=== PATIENT | female | born 1985 | race Caucasian/White ===

== ENCOUNTER 2017-12-25 21:24 | Emergency (ER) | payer BC ==
[2017-12-25] MEDS ORDERED: Sodium Chloride 0.9% 1,000 ML IV ONE (21:30)
--- NOTE | 2017-12-25 21:38 | EDM.PDOC ---
<Janes Martinez - Last Filed: 12/25/17 23:01> ED HPI GENERAL MEDICAL PROBLEM - General Stated Complaint: 15 WEEKS PREG- TROUBLE BREATHING Time Seen by Provider: 12/25/17 21:30 - History of Present Illness INITIAL COMMENTS - FREE TEXT/NARRATIVE: Dr. Martinez taking over care for patient at 2200 hrs. I reviewed pertinent labs and history and have examined patient. Patient improved with IV fluids. Secondary to limited symptoms I do not feel that treating with an antibiotic at this time is necessary. I did instruct her to follow-up with her PULMONARY FELLOW Dr. vegas at [facility] on Wednesday. I also instructed her to return to emergency department if she had any new or worsening symptoms. Hers well's criteria is low probability for DVT/PE. - Related Data Allergies Allergy/AdvReac Type Severity Reaction Status Date / Time No Known Allergies Allergy Verified 12/25/17 21:32 Home Meds: Home Meds . [No Known Home Meds] 12/25/17 [History] ED ROS GENERAL - Review of Systems Review Of Systems: ROS reveals no pertinent complaints other than HPI. ED EXAM, GENERAL - Physical Exam Exam: See Below Course - Vital Signs Last Recorded V/S: Last Vital Signs Temp 97.6 F 12/25/17 23:07 Pulse 92 12/25/17 23:07 Resp 20 12/25/17 23:07 BP 120/74 12/25/17 23:07 Pulse Ox 100 12/25/17 23:07 - Orders/Labs/Meds Labs: Laboratory Tests 12/25/17 12/25/17 Range/Units 21:41 21:41 WBC 12.00 H (4.0-11.0) K/uL RBC 4.08 L (4.30-5.90) M/uL Hgb 13.0 (12.0-16.0) g/dL Hct 37.3 (36.0-46.0) % MCV 91.4 (80.0-98.0) fL MCH 31.9 (27.0-32.0) pg MCHC 34.9 (31.0-37.0) g/dL RDW Std Deviation 44.0 (28.0-62.0) fl RDW Coeff of Haleigh 13 (11.0-15.0) % Plt Count 318 (150-400) K/uL MPV 9.90 (7.40-12.00) fL Neut % (Auto) 58.8 (48.0-80.0) % Lymph % (Auto) 30.8 (16.0-40.0) % [place] % (Auto) 7.9 (0.0-15.0) % Eos % (Auto) 2.3 (0.0-7.0) % Baso % (Auto) 0.2 (0.0-1.5) % Neut # (Auto) 7.1 H (1.4-5.7) K/uL Lymph # (Auto) 3.7 H (0.6-2.4) K/uL [place] # (Auto) 1.0 H (0.0-0.8) K/uL Eos # (Auto) 0.3 (0.0-0.7) K/uL Baso # (Auto) 0.0 (0.0-0.1) K/uL Nucleated RBC % 0.0 /100WBC Nucleated RBCs # 0 K/uL Sodium 138 (136-145) mmol/L Potassium 4.7 (3.5-5.1) mmol/L Chloride 104 (98-107) mmol/L Carbon Dioxide 27.1 (21.0-32.0) mmol/L BUN 12 (7.0-18.0) mg/dL Creatinine 0.9 (0.6-1.0) mg/dL Est Cr Clr Drug Dosing 68.97 mL/min Estimated GFR (MDRD) > 60.0 ml/min Glucose 114 H (74-106) mg/dL Calcium 9.5 (8.5-10.1) mg/dL Total Bilirubin 0.1 L (0.2-1.0) mg/dL AST 18 (15-37) IU/L ALT 27 (14-63) IU/L Alkaline Phosphatase 143 H (46-116) U/L Total Protein 7.0 (6.4-8.2) g/dL Albumin 3.2 L (3.4-5.0) g/dL Globulin 3.8 H (2.0-3.5) g/dL Albumin/Globulin Ratio 0.8 L (1.3-2.8) Meds: Medications Discontinued Medications Generic Name Dose Route Start Last Admin Trade Name Freq PRN Reason Stop Dose Admin Sodium Chloride 1,000 mls @ 999 mls/hr 12/25/17 21:30 12/25/17 21:54 Normal Saline IV 12/25/17 22:30 999 mls/hr STAT ONE Administration Departure - Departure Disposition: Home, Self-Care 01 Condition: Good Clinical Impression: Bronchitis - Discharge Information Instructions: Acute Bronchitis, Adult Referrals: PCP,None [Primary Care Provider] - Forms: ED Department Discharge Additional Instructions: The following information is given to patients seen in the emergency department who are being discharged to home. This information is to outline your options for follow-up care. We provide all patients seen in our emergency department with a follow-up referral. The need for follow-up, as well as the timing and circumstances, are variable depending upon the specifics of your emergency department visit. If you don't have a primary care physician on staff, we will provide you with a referral. We always advise you to contact your personal physician following an emergency department visit to inform them of the circumstance of the visit and for follow-up with them and/or the need for any referrals to a consulting specialist. The emergency department will also refer you to a specialist when appropriate. This referral assures that you have the opportunity for follow-up care with a specialist. All of these measure are taken in an effort to provide you with optimal care, which includes your follow-up. Under all circumstances we always encourage you to contact your private physician who remains a resource for coordinating your care. When calling for follow-up care, please make the office aware that this follow-up is from your recent emergency room visit. If for any reason you are refused follow-up, please contact the [facility] Emergency Department at and asked to speak to the emergency department charge nurse. [facility] [address] [place] [id number] 1. Increase your fluids; good nutrition. Tylenol for pain/fever management. 2. Follow-up with your primary care provider and/or PULMONARY FELLOW in the next couple days. Return to the ED as needed and as discussed. [facility] [address] [place] [id number] <Delia Valero E - Last Filed: 01/05/18 11:54> ED HPI GENERAL MEDICAL PROBLEM - General Source of Information: Reports: Patient History Limitations: Reports: No Limitations - History of Present Illness INITIAL COMMENTS - FREE TEXT/NARRATIVE: HISTORY AND PHYSICAL: History of present illness: Patient is a 32-year-old female who presents to the emergency room with complaints of dyspnea 1 week. She had sinus congestion and pressure and believes she now has a sinus infection as well. She states that she has had these symptoms and was seen at a walk-in clinic and was told it was viral, no prescription was given. Reports that "Anytime I walk or go up a flight of stairs , I'm so short of breath". She states she does have a history of anxiety and reports that this may have some to her dyspnea. She denies any fever, chills, chest pain, abdominal pain, nausea, vomiting, diarrhea or constipation. Patient is 13 weeks and receives care at [facility] by Dr Trinidad. Denies any vaginal bleeding or cramping. visits have been going well. Review of systems: As per history of present illness and below otherwise all systems reviewed and negative. Past medical history: As per history of present illness and as reviewed below otherwise noncontributory. Surgical history: As per history of present illness and as reviewed below otherwise noncontributory. Social history: No reported history of drug or alcohol abuse. Family history: As per history of present illness and as reviewed below otherwise noncontributory. Physical exam: General: Well-developed and well-nourished 32-year-old female. Alert and oriented. Nontoxic appearing and in no acute distress. HEENT: Atraumatic, normocephalic, pupils equal and reactive bilaterally, negative for conjunctival pallor or scleral icterus, mucous membranes moist, throat clear, neck supple, nontender, trachea midline. No drooling or trismus noted. No meningeal signs. Maxillary sinus tenderness with palpation, bilateral. Lungs: Clear to auscultation, breath sounds equal bilaterally, chest nontender. Heart: S1S2, regular rate and rhythm without overt murmur Abdomen: Soft, nondistended, nontender. Negative for masses or hepatosplenomegaly. Negative for costovertebral tenderness. Pelvis: Stable nontender. Genitourinary: Deferred. Rectal: Deferred. Skin: Intact, warm, dry. No lesions or rashes noted. Extremities: Atraumatic, negative for cords or calf pain. Neurovascular unremarkable. Neuro: Awake, alert, oriented. Cranial nerves II through XII unremarkable. Cerebellum unremarkable. Motor and sensory unremarkable throughout. Exam nonfocal. Notes: Pulse was rechecked after the patient was able to sit down, 90 bpm. She is negative for the well's criteria for pulmonary embolism. Patient was turned over to Dr. Martinez at 2200. Diagnostics: CBC, CMP, EKG Therapeutics: Normal saline Impression: Bronchitis Plan: 1. Please take your antibiotic as directed. 2. Increase your fluids; good nutrition. Tylenol for pain/fever management. 3. Follow-up with your primary care provider and/or PULMONARY FELLOW in the next couple days. Return to the ED as needed and as discussed. Definitive disposition and diagnosis as appropriate pending reevaluation and review of above. ED ROS GENERAL - Review of Systems Review Of Systems: ROS reveals no pertinent complaints other than HPI. ED EXAM, GENERAL - Physical Exam Exam: See Below Course - Vital Signs Last Recorded V/S: Last Vital Signs Temp 97.6 F 12/25/17 23:07 Pulse 92 12/25/17 23:07 Resp 20 12/25/17 23:07 BP 120/74 12/25/17 23:07 Pulse Ox 100 12/25/17 23:07 - Orders/Labs/Meds Labs: Laboratory Tests 12/25/17 12/25/17 Range/Units 21:41 21:41 WBC 12.00 H (4.0-11.0) K/uL RBC 4.08 L (4.30-5.90) M/uL Hgb 13.0 (12.0-16.0) g/dL Hct 37.3 (36.0-46.0) % MCV 91.4 (80.0-98.0) fL MCH 31.9 (27.0-32.0) pg MCHC 34.9 (31.0-37.0) g/dL RDW Std Deviation 44.0 (28.0-62.0) fl RDW Coeff of Haleigh 13 (11.0-15.0) % Plt Count 318 (150-400) K/uL MPV 9.90 (7.40-12.00) fL Neut % (Auto) 58.8 (48.0-80.0) % Lymph % (Auto) 30.8 (16.0-40.0) % [place] % (Auto) 7.9 (0.0-15.0) % Eos % (Auto) 2.3 (0.0-7.0) % Baso % (Auto) 0.2 (0.0-1.5) % Neut # (Auto) 7.1 H (1.4-5.7) K/uL Lymph # (Auto) 3.7 H (0.6-2.4) K/uL [place] # (Auto) 1.0 H (0.0-0.8) K/uL Eos # (Auto) 0.3 (0.0-0.7) K/uL Baso # (Auto) 0.0 (0.0-0.1) K/uL Nucleated RBC % 0.0 /100WBC Nucleated RBCs # 0 K/uL Sodium 138 (136-145) mmol/L Potassium 4.7 (3.5-5.1) mmol/L Chloride 104 (98-107) mmol/L Carbon Dioxide 27.1 (21.0-32.0) mmol/L BUN 12 (7.0-18.0) mg/dL Creatinine 0.9 (0.6-1.0) mg/dL Est Cr Clr Drug Dosing 68.97 mL/min Estimated GFR (MDRD) > 60.0 ml/min Glucose 114 H (74-106) mg/dL Calcium 9.5 (8.5-10.1) mg/dL Total Bilirubin 0.1 L (0.2-1.0) mg/dL AST 18 (15-37) IU/L ALT 27 (14-63) IU/L Alkaline Phosphatase 143 H (46-116) U/L Total Protein 7.0 (6.4-8.2) g/dL Albumin 3.2 L (3.4-5.0) g/dL Globulin 3.8 H (2.0-3.5) g/dL Albumin/Globulin Ratio 0.8 L (1.3-2.8) Departure - Departure Time of Disposition: 21:59
[2017-12-25 22:15] LABS: CHLORIDE,CL 104 mmol/L (98-107); SODIUM,NA 138 mmol/L (136-145)
== END 2017-12-25 23:08 | disposition home or self-care (01) ==
LOC: MW.ED 21:24
DX: O99.511 Diseases of the respiratory system complicating pregnancy, first trimester (principal); J40 Bronchitis, not specified as acute or chronic; Z3A.13 13 weeks gestation of pregnancy
CPT/HCPCS: 36415; 80053; 85025; 93005; 96360; 99285; J7040; 99283